=== PATIENT | female | born 1970 ===

== ENCOUNTER 2020-01-28 14:02 | Outpatient (CLI) | payer OTHER | END 2020-01-28 14:08 | disposition home or self-care (01) | LOC: MAMO-SONO 14:02 | PROVIDERS: ATTEND Specialist | DX: N60.11 Diffuse cystic mastopathy of right breast (principal); N60.12 Diffuse cystic mastopathy of left breast; N84.0 Polyp of corpus uteri; Z12.31 Encounter for screening mammogram for malignant neoplasm of breast ==

== ENCOUNTER 2020-05-22 11:00 | Outpatient (CLI) | payer OTHER | END 2020-05-22 11:13 | disposition home or self-care (01) | LOC: MAMO-SONO 11:00 → SONOGRAMA 11:00 | PROVIDERS: ATTEND Obstetrics & Gynecology Gynecology | DX: D25.9 Leiomyoma of uterus, unspecified (principal); N84.0 Polyp of corpus uteri ==